=== PATIENT | male | born 1960 | race Caucasian/White ===

== ENCOUNTER 2018-02-22 14:47 | Inpatient (IN) | payer OTHER ==
[~2018-02-22] VITALS: Ht 180.3 cm; Wt 99.8 kg
--- NOTE | ~2018-02-22 | EKG ---
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 : 1960 Requested By: Linda Miranda Order Number: [id number] MD: Pierce Levy Measurements Intervals [place] Rate: 84 P: 42 [place]: 198 QRS: 51 QRSD: 110 T: 33 QT: 355 QTc: 420 Interpretive Statements Sinus rhythm Abnormal R-wave progression, early transition Compared to ECG 06/09/2015 06:58:28 No significant changes Electronically Signed On 02-23-2018 7:51:12 CDT by Pierce Levy [email or web address] <ELECTRONICALLY SIGNED> By: Pierce Levy MD, [facility] 02/23/18 0751 1453 145 Pierce Levy MD, [facility] /EPI
--- NOTE | ~2018-02-22 | EKG ---
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: : 1960 Requested By: Juanpablo Roche Order Number: [id number] MD: Pierce Levy Measurements Intervals [place] Rate: 59 P: 52 ND: 215 QRS: 52 QRSD: 114 T: 32 QT: 421 QTc: 417 Interpretive Statements Sinus rhythm Prolonged ND interval Incomplete right bundle branch block Compared to ECG 02/22/2018 14:53:32 No significant change was found Electronically Signed On 02-24-2018 8:08:34 CDT by Pierce Levy [email or web address] <ELECTRONICALLY SIGNED> By: Pierce Levy MD, [facility] 02/24/18 0808 0939 0939 Pierce Levy MD, [facility] /EPI
--- NOTE | ~2018-02-22 | EKG ---
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 : 1960 Requested By: Emre Parnell Order Number: [id number] MD: Pierce Levy Measurements Intervals [place] Rate: 68 P: 49 ND: 213 QRS: 44 QRSD: 114 T: 35 QT: 409 QTc: 436 Interpretive Statements Sinus rhythm Prolonged ND interval Abnormal R-wave progression, early transition Small inferior Q waves Compared to ECG 02/22/2018 14:53:32 No significant change was found Electronically Signed On 02-23-2018 16:15:55 CDT by Pierce Levy [email or web address] <ELECTRONICALLY SIGNED> By: Pierce Levy MD, [facility] 02/23/18 1615 1137 1137 Pierce Levy MD, [facility] /EPI
--- NOTE | ~2018-02-22 | EXE ---
[facility] [address] [place] [address] STRESS ECHOCARDIOGRAM Name: VINCE MOSS Room #: 350-P ADM IN M.R.#: [id number] Admission: 02/22/18 Attend Phys: Juanpablo Roche MD Discharge: Date of : 58 Date of Service: 02/23/18 1458 Report #: [id number] THIS REPORT FOR: //name// APPROVED REPORT Study performed: 02/23/2018 09:36:21 Exam: Stress Echocardiogram Indication: Chest pain Patient Location: In-Patient Stress Nurse: Jacqueline Stone RN Room #: 350 Supervising Physician: Parmjit Status: routine Ht: 5 ft 11 in HR: 56 bpm BP: 100/65 mmHg Rhythm: NSR Medical History Medical History: CAD s/p CABG, stent Medications: Listed on worksheet Allergies: No known drug allergies Cardiac Risk Factors: HTN, Hyperlipidemia Previous Cardiac Procedures: CABG Procedure The patient underwent an Exercise Stress Test using the Dami Protocol. Blood pressure, heart rate, and EKG were monitored. An Echocardiogram was performed by weatherization technician in four stages in quad fashion. At peak stress, four selected images were obtained and placed side by side with resting images for comparison. Stress Test Details Stress Test: Exercise stress testing was performed using a Dami protocol. HR Resting HR: 56 bpm Max Heart Rate (APMHR): 162 bpm Max HR Achieved: 144 bpm Target HR (85% APMHR): 137 bpm % of APMHR: 88 Recovery HR: 73 bpm HR response to stress: Normal HR response to stress BP Resting BP: 110/65 mmHg [facility] [address] [place] [address] STRESS ECHOCARDIOGRAM Name: VINCE MOSS Room #: 350-P [facility] IN [facility].#: [id number] Admission: 02/22/18 Attend Phys: Juanpablo Roche MD Discharge: Date of : 58 Date of Service: 02/23/18 1458 Report #: [id number] Max BP: 160/80 mmHg Recovery BP: 126/80 mmHg ECG Resting ECG: Sinus Rhythm Stress ECG: Frequent PVCs noted Clinical Reason for Termination: moderate/severe fatigue Stress Symptoms: Chest pain, Dyspnea Exercise duration: 9 min 21 sec Highest Stage Achieved: Stage 4: 4.2 mph at 16% grade. Exercise capacity: 11.20 METs Patient experienced chest pain at rest and during the duration of the treadmill. Pre-Stress Echo The resting Echocardiogram showed normal left ventricular contractility with an estimated Ejection Fraction of about 50-55%. No significant valvular abnormalities noted. Post-Stress Echo The stress Echocardiogram showed normal left ventricular contractility with an estimated Ejection Fraction of about 60-65%. Conclusion Clinical Response: Non-ischemic Exercise Capacity: Average Stress ECG Response: Non-ischemic Stress Echo Images: Non-ischemic Other Information Study Quality: Adequate <ELECTRONICALLY SIGNED> By: Emre Parnell MD, FACC 02/23/18 1458 1458 1458 Emre Parnell MD, FACC /INF
[~2018-02-22 14:47] MED LIST: AMOXICILLIN 50500 M1 PO; ASPIR 8181 MG PO; ASPIRIN325 PO; ASPIRIN81 M2 PO; COZAAR 25 MG TA25 M1 PO; EFFIENT10 MG PO; FERREX 150150 MG PO; LIPITOR40 MG PO; LORTAB 5-325 M1 EACH PO; NORCO 5-325 TA1 EACH PO; PACERONE 200 M200 M1 PO; ROLAIDS CHEWAB1 EAC1 PO; SYNTHROID125 MCG PO; TOPROL XL25 MG PO; TUMS PO
[2018-02-22 14:50] VITALS: BP 121/73
[2018-02-22] MEDS ORDERED: PROTONIX40 M2 PO (14:54)
[2018-02-22] MEDS ORDERED: COZAAR 25 MG TA25 M2 PO (14:55)
[2018-02-22] MEDS ORDERED: SYNTHROID137 MC1 PO (14:55)
[2018-02-22] MEDS ORDERED: ZETIA10 MG PO (14:55)
[2018-02-22 15:33] LABS: BASOPHILS 0.5 % (0.0-2.0); EOSINOPHILS 1.2 % (0.0-3.0); HEMATOCRIT 42.9 % (42.0-52.0); HEMOGLOBIN 14.9 gm/dL (14.0-18.0); LYMPHOCYTES 7.7 % (24.0-44.0); MCH 30.1 pg (26.0-34.0); MCHC 34.8 g/dL (28.0-37.0); MCV 86.6 fL (80.0-100.0); MONOCYTES 3.6 % (1.0-8.0); PLATELET COUNT 199 thou/uL (150-400); RBC 4.96 mil/uL (4.50-6.00); RDW 13.4 % (10.5-14.5)
[2018-02-22 15:48] LABS: ANION GAP 10 mmol/L (7-16); BUN 16 mg/dL (7-18); CALCIUM 8.3 mg/dL (8.5-10.1); CHLORIDE 105 mmol/L (98-107); CO2 22 mmol/L (21-32); CREATININE 0.9 mg/dL (0.7-1.3); GLUCOSE 109 mg/dL (74-106); POTASSIUM 3.8 mmol/L (3.5-5.1); SODIUM 137 mmol/L (136-145)
[2018-02-22 15:56] LABS: TROPONIN-I <0.06 ng/mL (<0.06)
[2018-02-22 17:42] VITALS: BP 113/65
[2018-02-22 18:16] VITALS: BP 107/65
[2018-02-22 19:10] VITALS: BP 116/74
[2018-02-23 03:20] VITALS: BP 97/58
[2018-02-23 05:05] LABS: HEMATOCRIT 42.8 % (42.0-52.0); HEMOGLOBIN 14.6 gm/dL (14.0-18.0); MCH 29.8 pg (26.0-34.0); MCHC 34.1 g/dL (28.0-37.0); MCV 87.6 fL (80.0-100.0); RBC 4.88 mil/uL (4.50-6.00); RDW 13.4 % (10.5-14.5); WBC 5.5 thou/uL (4.0-11.0)
[2018-02-23 05:22] LABS: ANION GAP 11 mmol/L (7-16); BUN 13 mg/dL (7-18); CALCIUM 8.3 mg/dL (8.5-10.1); CHLORIDE 105 mmol/L (98-107); CO2 23 mmol/L (21-32); CREATININE 0.9 mg/dL (0.7-1.3); GLUCOSE 100 mg/dL (74-106); POTASSIUM 3.6 mmol/L (3.5-5.1); SODIUM 139 mmol/L (136-145); TROPONIN-I <0.06 ng/mL (<0.06)
[2018-02-23 07:53] VITALS: BP 100/65
[2018-02-23 15:04] VITALS: BP 100/65
== END 2018-02-23 16:13 | disposition home or self-care (01) | DRG 313 ==
LOC: ER 14:47 → EROBS 17:08 → 3W 17:08 → ENTRNSPT 02-23 16:00 → 3W 02-23 16:13
PROVIDERS: Emergency Medicine; Hospitalist
DX: R07.9 Chest pain, unspecified (principal); K08.409 Partial loss of teeth, unspecified cause, unspecified class; E03.9 Hypothyroidism, unspecified; I25.5 Ischemic cardiomyopathy; F17.220 Nicotine dependence, chewing tobacco, uncomplicated; I25.10 Atherosclerotic heart disease of native coronary artery without angina pectoris; I10 Essential (primary) hypertension; E78.5 Hyperlipidemia, unspecified; I25.2 Old myocardial infarction; Z95.1 Presence of aortocoronary bypass graft; Z95.5 Presence of coronary angioplasty implant and graft; Z79.82 Long term (current) use of aspirin; Z79.899 Other long term (current) drug therapy
CPT/HCPCS: 10779

== ENCOUNTER → 2020-03-25 | Outpatient (CLI) | payer OTHER ==
[~2020-03-25] MED LIST changes: +COZAAR 25 MG TA25 M2 PO; +PROTONIX40 M2 PO; +SYNTHROID137 MC1 PO; +ZETIA10 MG PO
== END ==
LOC: SJCVCIMAG 09:11
PROVIDERS: ATTEND Internal Medicine Cardiovascular Disease
DX: I49.3 Ventricular premature depolarization (principal); I25.810 Atherosclerosis of coronary artery bypass graft(s) without angina pectoris; Z95.1 Presence of aortocoronary bypass graft; Z98.61 Coronary angioplasty status

== ENCOUNTER 2020-05-09 15:13 | Emergency (ER) | payer OTHER ==
[~2020-05-09] VITALS: Ht 182.9 cm; Wt 99.8 kg
[2020-05-09 16:49] LABS: ABSOLUTE NEUTROPHILS 3.6 thou/uL (1.4-8.2); BASOPHILS 0.7 % (0.0-2.0); EOSINOPHILS 3.1 % (0.0-3.0); HEMATOCRIT 42.8 % (42.0-52.0); HEMOGLOBIN 14.3 gm/dL (14.0-18.0); LYMPHOCYTES 31.7 % (24.0-44.0); MCH 29.4 pg (26.0-34.0); MCHC 33.3 g/dL (28.0-37.0); MCV 88.1 fL (80.0-100.0); MONOCYTES 8.6 % (1.0-8.0); PLATELET COUNT 254 thou/uL (150-400); POLYS 55.9 % (36.0-66.0); RBC 4.86 mil/uL (4.50-6.00); RDW 13.9 % (10.5-14.5); WBC 6.5 thou/uL (4.0-11.0)
[2020-05-09 17:01] LABS: ANION GAP 10 mmol/L (7-16); BUN 16 mg/dL (7-18); CALCIUM 8.8 mg/dL (8.5-10.1); CHLORIDE 108 mmol/L (98-107); CO2 24 mmol/L (21-32); CREATININE 0.9 mg/dL (0.7-1.3); GLUCOSE 99 mg/dL (74-106); POTASSIUM 4.1 mmol/L (3.5-5.1); SODIUM 142 mmol/L (136-145)
[2020-05-09 17:09] LABS: ALBUMIN 3.7 g/dL (3.4-5.0); SGOT 18 U/L (15-37); SGPT 31 U/L (30-65); TOTAL BILIRUBIN 1.6 mg/dL (0.2-1.0); TOTAL PROTEIN 7.2 g/dL (6.4-8.2); TROPONIN-I <0.06 ng/mL (<0.06)
[2020-05-09] MEDS ORDERED: COZAAR 25 MG TA25 M2 PO (17:49)
[2020-05-09] MEDS ORDERED: REPATHA SU140 MG/1 M SUBQ (17:50)
[2020-05-09 18:53] VITALS: BP 107/63
--- NOTE | 2020-05-10 07:35 | EKG ---
[facility] [place] [address] ELECTROCARDIOGRAM REPORT Name: VINCE MOSS Room #: DEP [facility]..#: [id number] Admission: 05/09/20 Attend Phys: Discharge: 05/09/20 Date of : 58 Report #: [id number] THIS REPORT FOR: cc: Krishna Esteves MD, Matthew W. MD Lundgren,Pierce Fung MD [facility] THIS REPORT FOR: //name// [facility] ED Test Date: 2020-05-09 Test Time: 15:20:21 Pat Name: VINCE MOSS Department: Room: Gender: Director Process: [facility] : 1960 Requested By: Jonnie Pederson Order Number: [id number] MD: Pierce Levy Measurements Intervals [place] Rate: 62 P: 66 IN: 199 QRS: 38 QRSD: 120 T: 34 QT: 411 QTc: 418 Interpretive Statements Sinus rhythm Early R wave progression Compared to ECG 02/23/2018 11:37:23 First degree AV block no longer present Electronically Signed On 05-10-2020 7:35:33 CDT by Pierce Levy [email or web address] <ELECTRONICALLY SIGNED> By: Pierce Levy MD, FACC 05/10/20 0735 1520 1520 Pierce Levy MD, [facility] /EPI
== END 2020-05-09 19:00 | disposition home or self-care (01) ==
LOC: ER 15:13
PROVIDERS: Emergency Medicine
DX: R07.89 Other chest pain (principal); M43.6 Torticollis; M54.2 Cervicalgia; R20.0 Anesthesia of skin; I25.2 Old myocardial infarction; Z95.5 Presence of coronary angioplasty implant and graft; Z79.899 Other long term (current) drug therapy; Z79.82 Long term (current) use of aspirin; Z87.891 Personal history of nicotine dependence

== ENCOUNTER 2020-12-08 17:51 | Emergency (ER) | payer OTHER ==
[~2020-12-08] VITALS: Ht 180.3 cm; Wt 99.8 kg
[~2020-12-08 17:51] MED LIST changes: +REPATHA SU140 MG/1 M SUBQ
[2020-12-08 18:32] LABS: ABSOLUTE NEUTROPHILS 2.7 thou/uL (1.4-8.2); BASOPHILS 0.7 % (0.0-2.0); EOSINOPHILS 3.1 % (0.0-3.0); HEMATOCRIT 44.8 % (42.0-52.0); HEMOGLOBIN 14.8 gm/dL (14.0-18.0); LYMPHOCYTES 20.8 % (24.0-44.0); MCH 29.6 pg (26.0-34.0); MCHC 33.2 g/dL (28.0-37.0); MCV 89.2 fL (80.0-100.0); MONOCYTES 13.5 % (1.0-8.0); PLATELET COUNT 237 thou/uL (150-400); POLYS 61.9 % (36.0-66.0); RBC 5.02 mil/uL (4.50-6.00); WBC 4.3 thou/uL (4.0-11.0)
[2020-12-08 18:33] LABS: ANION GAP 8 mmol/L (7-16); BUN 14 mg/dL (7-18); CALCIUM 8.4 mg/dL (8.5-10.1); CHLORIDE 110 mmol/L (98-107); CO2 24 mmol/L (21-32); GLUCOSE 106 mg/dL (74-106); POTASSIUM 4.1 mmol/L (3.5-5.1); SODIUM 142 mmol/L (136-145)
[2020-12-08 18:44] LABS: ALBUMIN 3.5 g/dL (3.4-5.0); DIRECT BILIRUBIN 0.3 mg/dL (<0.1-0.2); LIPASE 84 U/L (73-393); SGOT 29 U/L (15-37); SGPT 45 U/L (16-63); TOTAL BILIRUBIN 1.3 mg/dL (0.2-1.0); TROPONIN-I <0.06 ng/mL (<0.06)
[2020-12-08] MEDS ORDERED: CARAFATE 1 GM TA1 G1 PO (19:45)
[2020-12-08] MEDS ORDERED: ONDANSETRON HCL4 M2 PO (19:45)
[2020-12-08 19:51] VITALS: BP 128/70
--- NOTE | 2020-12-09 07:46 | EKG ---
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 : 1960 Requested By: Vince Key Order Number: [id number] MD: Dong Jessica Measurements Intervals [place] Rate: 68 P: 49 SD: 213 QRS: 51 QRSD: 119 T: 32 QT: 407 QTc: 433 Interpretive Statements Sinus rhythm Borderline prolonged SD interval Nonspecific intraventricular conduction delay Abnormal inferior Q waves Compared to ECG 05/09/2020 15:20:21 Intraventricular conduction delay now present Inferior Q waves now present Q waves now present Poor R-wave progression no longer present Electronically Signed On 12-09-2020 7:46:08 CDT by Dong Jessica [email or web address] <ELECTRONICALLY SIGNED> By: Dong Jessica MD, [facility] 12/09/20 0746 1826 1826 oDng Jessica MD, [facility] /[facility]
== END 2020-12-08 19:53 | disposition home or self-care (01) ==
LOC: ER 17:51
PROVIDERS: Nurse Practitioner
DX: R11.2 Nausea with vomiting, unspecified (principal); Z20.822 Contact with and (suspected) exposure to COVID-19; R10.84 Generalized abdominal pain; R19.7 Diarrhea, unspecified; R06.02 Shortness of breath; E03.9 Hypothyroidism, unspecified; E78.5 Hyperlipidemia, unspecified; Z98.61 Coronary angioplasty status; Z79.899 Other long term (current) drug therapy; Z79.82 Long term (current) use of aspirin; Z87.891 Personal history of nicotine dependence

== ENCOUNTER 2021-06-07 21:31 | Emergency (ER) | payer OTHER ==
[~2021-06-07] VITALS: Ht 180.3 cm; Wt 99.8 kg
[~2021-06-07 21:31] MED LIST changes: +CARAFATE 1 GM TA1 G1 PO; +ONDANSETRON HCL4 M2 PO
[2021-06-07 22:59] LABS: ABSOLUTE NEUTROPHILS 4.2 thou/uL (1.4-8.2); BASOPHILS 0.4 % (0.0-2.0); EOSINOPHILS 0.9 % (0.0-3.0); HEMOGLOBIN 14.7 gm/dL (14.0-18.0); LYMPHOCYTES 12.8 % (24.0-44.0); MCH 29.7 pg (26.0-34.0); MCHC 33.5 g/dL (28.0-37.0); MCV 88.6 fL (80.0-100.0); MONOCYTES 7.2 % (1.0-8.0); PLATELET COUNT 217 thou/uL (150-400); POLYS 78.7 % (36.0-66.0); RBC 4.97 mil/uL (4.50-6.00); RDW 13.6 % (10.5-14.5); WBC 5.3 thou/uL (4.0-11.0)
[2021-06-07 23:02] LABS: CALCIUM 8.1 mg/dL (8.5-10.1); POTASSIUM 3.9 mmol/L (3.5-5.1)
[2021-06-07 23:12] LABS: ALBUMIN 3.4 g/dL (3.4-5.0); TOTAL BILIRUBIN 1.4 mg/dL (0.2-1.0); TOTAL PROTEIN 6.8 g/dL (6.4-8.2)
[2021-06-08 00:02] VITALS: BP 129/69
--- NOTE | 2021-06-08 12:35 | EKG ---
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 06/08/21 1235 2210 09 Pierce Levy MD, FACC /EPI
--- NOTE | 2021-06-09 09:42 | EKG ---
[place] [address] 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 Of Communications: MIGUEL QUARLES : 1960 Requested By: Bonifacio Wolfe Order Number: [id number] MD: Pierce Levy Measurements Intervals [place] Rate: 79 P: 45 [place]: 195 QRS: 44 QRSD: 114 T: 27 QT: 386 QTc: 443 Interpretive Statements Sinus rhythm Abnormal R-wave progression, early transition Compared to ECG 06/07/2021 22:10:21 No significant changes Electronically Signed On 06-09-2021 9:42:04 SALES NEGOTIATOR by Pierce Levy [email or web address] <ELECTRONICALLY SIGNED> By: Pierce Levy MD, [facility] 06/09/21 0942 2304 2304 Pierce Levy MD, FACC /EPI
== END 2021-06-08 00:05 | disposition home or self-care (01) ==
LOC: ER 21:31
PROVIDERS: Emergency Medicine
DX: K52.9 Noninfective gastroenteritis and colitis, unspecified (principal); E03.9 Hypothyroidism, unspecified; Z79.899 Other long term (current) drug therapy

== ENCOUNTER → 2021-07-28 | Outpatient (CLI) | payer OTHER | LOC: SJCVCIMAG 11:31 | PROVIDERS: ATTEND Internal Medicine Cardiovascular Disease | DX: I08.1 Rheumatic disorders of both mitral and tricuspid valves (principal); I25.10 Atherosclerotic heart disease of native coronary artery without angina pectoris; Z95.1 Presence of aortocoronary bypass graft ==